=== PATIENT | female | born 1960 | race Caucasian/White ===

== ENCOUNTER 2017-06-10 09:26 | Emergency (ER) | payer OTHER ==
--- NOTE | 2017-06-10 10:46 | ED Physician Documentation ---
PD HPI BACK PAIN - Stated complaint Stated Complaint: BACK PX - Chief complaint Chief Complaint: Back Pain - History obtained from History obtained from: Patient - History of Present Illness Timing - onset: How many days ago (2-3) Timing - duration: Days Timing - details: Abrupt onset, Still present (started hurting left posterior chest/back about 2-3 days ago. Hurts for palpation and movement. Not hurting to breath and no dyspnea.) Location: Mid, Left (about brastrap level left rear back. No noted injury.) Quality: Pain, Sharp Associated symptoms: No: Fever, Weakness, Numbness Improves with: Rest Worsened by: Movement, Palpation Similar symptoms before: Has not had sx before Recently seen: Not recently seen Review of Systems Constitutional: denies: Fever, Chills Cardiac: denies: Palpitations, Pedal edema Respiratory: denies: Dyspnea, Cough PD PAST MEDICAL HISTORY - Past Medical History Endocrine/Autoimmune: HyPOthyroidism DIRECTOR OF LOGISTICS: Endometriosis - Past Surgical History Past Surgical History: Yes General: Cholecystectomy /DIRECTOR OF LOGISTICS: section, Hysterectomy HEENT: Tonsil/Adenoidectomy - Present Medications Home Medications: Ambulatory Orders Medication Instructions Recorded Confirmed Fexofenadine HCl [Tiffany Allergy] 10/31/15 Levothyroxine Sodium 10/31/15 Metheltestosterone 10/31/15 Norgestimate-Ethinyl Estradiol 10/31/15 [Tri-Estarylla Tablet] Psuedafed 10/31/15 Amoxicillin 500 mg PO BID #14 capsule 07/03/16 Amoxicillin/Potassium Clav 1 each PO BID #14 tablet 07/03/16 [Augmentin 875-125 Tablet] Benzonatate [Tessalon] 100 mg PO TID PRN #25 capsule 07/03/16 Ciprofloxacin HCl [Cipro] 07/03/16 Hyoscyamine Sulfate [Levsin-Sl] 0.125 mg SL TID #14 tab.subl 07/03/16 Ondansetron Odt [Zofran] 4 mg TL Q6H PRN #10 tablet 07/03/16 predniSONE [Deltasone] 40 mg PO DAILY 5 Days tablet 07/03/16 Methocarbamol [Robaxin] 500 mg PO Q6H PRN #25 tablet 06/10/17 Tramadol HCl 50 mg PO Q6H PRN #20 tablet 06/10/17 - Allergies Allergies/Adverse Reactions: Allergies Allergy/AdvReac Type Severity Reaction Status Date / Time azithromycin [From Zithromax] Allergy Unknown Verified 06/10/17 09:35 codeine Allergy Unknown Verified 06/10/17 09:35 erythromycin base Allergy Unknown Verified 06/10/17 09:35 hydrocodone bitartrate * Allergy Unknown Verified 06/10/17 09:35 [From Vicodin] lavender (Lavandula Allergy Unknown Verified 06/10/17 09:35 angustifolia) [lavender] morphine Allergy Unknown Verified 06/10/17 09:35 nitrofurantoin Allergy Unknown Verified 06/10/17 09:35 [From Macrobid] nitrofurantoin Allergy Unknown Verified 06/10/17 09:35 macrocrystalline * [From Macrobid] oxycodone HCl * Allergy Unknown Verified 06/10/17 09:35 [From Percocet] vinager Allergy Unknown Uncoded 10/31/15 10:25 - Social History Does the pt smoke?: No Smoking Status: Never smoker Does the pt drink ETOH?: No Does the pt have substance abuse?: No - Immunizations Immunizations are current?: Yes - POLST Patient has POLST: No PD ED PE NORMAL - Vitals Vital signs reviewed: Yes - General General: Alert and oriented X 3, Well developed/nourished, Other (appears in pain with palpation and movement. No pain with deep breathing. ) - HEENT HEENT: Pharynx benign - Neck Neck: Supple, no meningeal sign, No adenopathy - Cardiac Cardiac: RRR, No murmur - Respiratory Respiratory: Clear bilaterally - Female Female : Deferred - Back Back: No CVA TTP, No spinal TTP - Derm Derm: Normal color, Warm and dry, No rash - Extremities Extremities: No tenderness to palpate, Normal ROM s pain, No edema, No calf tenderness / cord - Neuro Neuro: Alert and oriented X 3, No motor deficit, Normal speech Results - Vitals Vitals: Vital Signs - 24 hr 06/10/17 06/10/17 09:31 13:28 Temperature 36.8 C 36.8 C Heart Rate 70 75 Respiratory 16 16 Rate Blood Pressure 98/57 L 131/79 H O2 Saturation 99 98 Oxygen O2 Source Room air - Rads (name of study) chest Radiology: Prelim report reviewed, EMP read contemporaneously (no acute process. ) PD MEDICAL DECISION MAKING - ED course Complexity details: reviewed results, considered differential (seems musculoskeletal. Higher than kidney area. No rash but is tender to touch as well as palpation. ), d/w patient Departure - Departure Disposition: 01 Home, Self Care Clinical Impression: Acute thoracic back pain Qualifiers: Back pain laterality: left Qualified Code(s): M54.6 - Pain in thoracic spine Condition: Stable Record reviewed to determine appropriate education?: Yes Instructions: ED Acute Pain [facility] Follow-Up: Ronen Hanley MD [Primary Care Provider] - Prescriptions: Methocarbamol [Robaxin] 500 mg PO Q6H PRN #25 tablet PRN Reason: Spasms Tramadol HCl 50 mg PO Q6H PRN #20 tablet PRN Reason: Pain Comments: Presume musculoskeletal pain at this time. Use Tylenol for pain. Add tramadol every 6 hours if needed. Robaxin muscle relaxant can be used as well for spasms or stiffness. Recheck if not improved over the next several days or if other symptoms develop such as rash, fever, trouble breathing, etc. Discharge Date/Time: 06/10/17 13:29
[2017-06-10] MEDS ORDERED: METHOCARBAMOL 500 MG TABLET PO STA (11:35)
[2017-06-10] MEDS ORDERED: ACETAMINOPHEN 325 MG TABLET PO STA (11:35)
[2017-06-10] MEDS ORDERED: traMADol 50 MG TABLET PO STA (11:35)
[2017-06-10] MEDS ORDERED: traMADol 50 MG TABLET PO ONE (12:01)
[2017-06-10] MEDS ORDERED: ACETAMINOPHEN 325 MG TABLET PO ONE (12:01)
[2017-06-10] MEDS ORDERED: METHOCARBAMOL 500 MG TABLET PO ONE (12:02)
--- NOTE | 2017-06-10 12:35 | XRAY Preliminary Report ---
Exam: XR CHEST 2 VIEW PA/LAT IMPRESSION: Minimal atelectatic changes at the left base, otherwise unremarkable exam. [facility] SITE ID: [id number]
--- NOTE | 2017-06-10 12:38 | XRAY Report ---
EXAM: CHEST RADIOGRAPHY EXAM DATE: 06/10/2017 12:11 PM. CLINICAL HISTORY: Left posterior rib/chest pain . COMPARISON: 01/11/2012. TECHNIQUE: 2 views. FINDINGS: Lungs/Pleura: Minimal atelectatic changes seen at the left base. Mediastinum: Heart and mediastinal contours are unremarkable. Other: None. IMPRESSION: Minimal atelectatic changes at the left base, otherwise unremarkable exam. [facility] Referring Provider Line: [phone] SITE ID: [id number]
[2017-06-10 13:28] VITALS: BP 131/79
== END 2017-06-10 13:29 | disposition home or self-care (01) ==
LOC: ED 09:26
DX: M54.6 Pain in thoracic spine (principal); E03.9 Hypothyroidism, unspecified
CPT/HCPCS: 71020; 99283; A9270

== ENCOUNTER 2017-06-28 14:54 | Outpatient (CLI) | payer OTHER ==
--- NOTE | 2017-06-28 18:45 | XRAY Report ---
TWO VIEW CHEST: 06/28/2017 CLINICAL INDICATION: Atelectasis. COMPARISON: 06/10/2017 Frontal and lateral views of the chest demonstrate a normal cardiac silhouette. Previously seen left basilar atelectasis has resolved. No focal infiltrate, effusion, or pneumothorax is present. IMPRESSION: NORMAL CHEST. JOB #: [id number] EXT JOB #:[id number]
== END 2017-06-28 14:55 | disposition home or self-care (01) ==
LOC: DI 14:54
PROVIDERS: ATTEND Family Medicine
DX: J98.11 Atelectasis (principal)
CPT/HCPCS: 71020

== ENCOUNTER 2019-05-30 11:58 | Outpatient (CLI) | payer OTHER ==
--- NOTE | 2019-05-30 15:39 | XRAY Report ---
Reason: PAINFUL 2ND JOINT L FOOT Procedure Date: 05/30/2019 Accession Number: [id number] / [id number] Procedure: XR - Foot 3 View LT CPT Code: Final Report FULL RESULT: EXAM: LEFT FOOT RADIOGRAPHY EXAM DATE: 05/30/2019 12:09 PM. CLINICAL HISTORY: PAINFUL 2ND JOINT L FOOT. COMPARISON: FOOT 3 VIEW LT 10/31/2015 10:35 AM. TECHNIQUE: 3 views. FINDINGS: Bones: Normal. No fractures or bone lesions. Joints: Normal. No subluxations. Soft Tissues: Normal. No soft tissue swelling. IMPRESSION: Negative foot radiography. [facility]
== END 2019-05-30 11:59 | disposition home or self-care (01) ==
LOC: DI 11:58
PROVIDERS: ATTEND Podiatrist
DX: M25.572 Pain in left ankle and joints of left foot (principal)

== ENCOUNTER 2019-06-07 12:51 | Emergency (ER) | payer OTHER ==
[2019-06-07] MEDS ORDERED: ONDANSETRON ODT 4 MG TABLET TL STA (13:14)
--- NOTE | 2019-06-07 15:00 | ED Physician Documentation ---
History of Present Illness - Stated complaint Stated Complaint: DIZZY/NAUSEA - Chief complaint Chief Complaint: General - History obtained from History obtained from: Patient - History of Present Illness Timing: Prior to arrival - Additonal information Additional information: This a 58-year-old woman who was outside helping someone who was doing some work on the deck she bent down and when she stood up she is felt like the room was spinning everywhere. She got nauseous so she went in the bathroom just put her head down on her knees she did have some dry heaving. She is continued to just feel woozy since that time and anytime she moves she will get that spinning sensation. When she arrived here in the emergency department they gave her Zofran by my orders out in the waiting room and she has improved she is not dry heaving anymore but she still feels a little bit woozy. She is been chilled and she is having stomach pain but it turns out that is a chronic issue that they think is related to a hernia. She is never had any episode of this before. She denies any headache although she then rubs the back of her neck and says that she is having a little bit of discomfort there. She does not have any ringing in her ears. She has not experienced any numbness or tingling. She is had no stuffy nose or sore throat. No fever. 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 - Past Surgical History Past Surgical History: Yes General: Cholecystectomy /WINDOWS 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: section, Hysterectomy HEENT: Tonsil/Adenoidectomy - Present Medications Home Medications: Ambulatory Orders Medication Instructions Recorded Confirmed Acetaminophen 500 mg PO 06/07/19 Cholecalciferol (Vitamin D3) 2,000 unit PO 06/07/19 [Vitamin D3] Esomeprazole Magnesium [Nexium] 20 mg PO 06/07/19 Fexofenadine HCl [Tiffany Allergy] 60 mg PO 06/07/19 Levothyroxine Sodium [Synthroid] 100 mcg PO 06/07/19 Meclizine [Antivert] 25 mg PO Q6H PRN #20 tablet 06/07/19 Ondansetron Odt [Zofran] 4 mg TL Q6H PRN #10 tablet 06/07/19 Provitalize 06/07/19 Simethicone [Gas Relief] 80 mg PO 06/07/19 - Allergies Allergies/Adverse Reactions: Allergies Allergy/AdvReac Type Severity Reaction Status Date / Time azithromycin [From Zithromax] Allergy Unknown Verified 06/07/19 14:46 codeine Allergy Unknown Verified 06/07/19 14:46 erythromycin base Allergy Unknown Verified 06/07/19 14:46 hydrocodone bitartrate * Allergy Unknown Verified 06/07/19 14:46 [From Vicodin] lavender (Lavandula Allergy Unknown Verified 06/07/19 14:46 angustifolia) [lavender] morphine Allergy Unknown Verified 06/07/19 14:46 nitrofurantoin Allergy Unknown Verified 06/07/19 14:46 [From Macrobid] nitrofurantoin Allergy Unknown Verified 06/07/19 14:46 macrocrystalline * [From Macrobid] oxycodone HCl * Allergy Unknown Verified 06/07/19 14:46 [From Percocet] vinager Allergy Unknown Uncoded 06/07/19 14:46 - Social History Does the pt smoke?: No Smoking Status: Never smoker Does the pt drink ETOH?: No Does the pt have substance abuse?: No - Immunizations Immunizations are current?: Yes - POLST Patient has POLST: No PD ED PE NORMAL - Vitals Vital signs reviewed: Yes - General General: Alert and oriented X 3, No acute distress, Well developed/nourished - HEENT HEENT: Atraumatic, PERRL, EOMI, Ears normal, Moist mucous membranes, Pharynx benign - Neck Neck: Supple, no meningeal sign, No adenopathy, Thyroid normal, No JVD, No bruit - Cardiac Cardiac: RRR, No murmur, No rub, Strong equal pulses - Respiratory Respiratory: No respiratory distress, Clear bilaterally - Abdomen Abdomen: Normal bowel sounds, Soft, Non tender, Non distended - Derm Derm: Normal color, Warm and dry, No rash - Extremities Extremities: No deformity, No edema - Neuro Neuro: Alert and oriented X 3, tire technician 2-12 intact, No motor deficit, No sensory deficit, Normal speech, Other (Patient was moving her head all about without any neck stiffness. She was up and ambulated and the only time she got a little bit off balance was when she turned quickly to go in the other direction. She was able to walk heel-to-toe and had a negative Romberg.) - Psych Psych: Normal mood, Normal affect Results - Vitals Vitals: Vital Signs - 24 hr 06/07/19 12:57 Temperature 36.6 C Heart Rate 64 Respiratory 16 Rate Blood Pressure 117/68 O2 Saturation 98 Oxygen O2 Source Room air PD MEDICAL DECISION MAKING - ED course Complexity details: d/w patient ED course: Patient felt better after the Zofran and was no longer vomiting. She has no neurological deficits at this time other than feeling the vertigo. I did not feel that imaging was warranted or necessary. She is given prescriptions for Antivert and Zofran. She should be cautious about rapid movements. She should not be driving or climbing to heights while she is still feeling dizzy as it could cause her to fall and injure herself. Departure - Departure Disposition: 01 Home, Self Care Clinical Impression: Vertigo Condition: Good Instructions: Meclizine, ED Vertigo Unspecified Follow-Up: Prosper Dimas MD [Primary Care Provider] - Prescriptions: Meclizine [Antivert] 25 mg PO Q6H PRN #20 tablet PRN Reason: Dizziness Ondansetron Odt [Zofran] 4 mg TL Q6H PRN #10 tablet PRN Reason: Nausea / Vomiting Comments: Be careful standing up quickly or any rapid movements. Do not climb up on any ladders or drive until the dizziness has resolved. You may use the Antivert up to 3 times a day if needed for dizziness. Give a prescription for Zofran to use if needed for nausea or vomiting. Follow-up with your primary care provider if the dizziness continues. If it becomes abruptly more severe or you are vomiting and cannot keep anything down, develop a headache or other problems arise you should be reevaluated.
[2019-06-07 16:00] VITALS: BP 135/84
== END 2019-06-07 16:05 | disposition home or self-care (01) ==
LOC: ED 12:51
DX: R42 Dizziness and giddiness (principal); R11.2 Nausea with vomiting, unspecified
CPT/HCPCS: 99282; 99283; Q0162

== ENCOUNTER 2022-05-02 08:00 | Outpatient (CLI) | payer OTHER ==
--- NOTE | 2022-05-02 13:48 | XRAY Report ---
PROCEDURE: Shoulder 3 View RT INDICATIONS: R SHOULDER PX TECHNIQUE: 3 views of the shoulder were acquired. COMPARISON: None. FINDINGS: Bones: No fractures or dislocations. No suspicious bony lesions. Visualized ribs appear intact. Soft tissues: No suspicious soft tissue calcifications. IMPRESSION: No acute finding. No significant degenerative changes. Reviewed by: Yovanny Gurrola MD on 05/02/2022 1:46 PM PDT Approved by: Yovanny Gurrola MD on 05/02/2022 1:46 PM PDT Station ID: [id number]
== END 2022-05-02 23:59 | disposition home or self-care (01) ==
LOC: DI.N 08:00
PROVIDERS: ATTEND Family Medicine
DX: M25.511 Pain in right shoulder (principal)

== ENCOUNTER 2023-04-21 17:11 | Emergency (ER) | payer OTHER ==
--- NOTE | 2023-04-21 18:54 | XRAY Report ---
PROCEDURE: Chest 1 View X-Ray INDICATIONS: SOA TECHNIQUE: One view of the chest was acquired. COMPARISON: None. FINDINGS: Surgical changes and devices: None. Lungs and pleura: No pleural effusions or pneumothorax. Lungs are clear. Mediastinum: Mediastinal contours appear normal. Heart size is normal. Bones and chest wall: No suspicious bony lesions. Overlying soft tissues appear unremarkable. IMPRESSION: No acute cardiopulmonary process. Reviewed by: Ede Wells on 04/21/2023 6:53 PM PDT Approved by: Ede Wells on 04/21/2023 6:53 PM PDT Station ID: [id number]
[2023-04-21] MEDS ORDERED: predniSONE 20 MG TABLET PO STA (18:57)
--- NOTE | 2023-04-21 19:00 | ED Physician Documentation ---
PD LOWE HEENT - Stated complaint Stated Complaint: SOA/WHEEZING - Chief complaint Chief Complaint: Heent - History obtained from History obtained from: Patient - Additional information Additional information: The patient comes to the emergency department chief complaint of wheezing, runny nose, and cough with yellow sputum production since being exposed to a cloud of dust a few days ago. She states that she has restrictive airway disease at baseline and is very prone to bronchitis. She is concerned that she may have bronchitis currently. She denies any fevers or chills. She denies shortness of breath. No other complaints at this time. No sick contacts that she knows of. 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 CHAIN BUSINESS ANALYST: section, Hysterectomy HEENT: Tonsil/Adenoidectomy - Present Medications Home Medications: Ambulatory Orders Medication Instructions Recorded Confirmed Acetaminophen 500 mg PO 06/07/19 Cholecalciferol (Vitamin D3) 2,000 unit PO 06/07/19 [Vitamin D3] Esomeprazole Magnesium [Nexium] 20 mg PO 06/07/19 Fexofenadine HCl [Tiffany Allergy] 60 mg PO 06/07/19 Levothyroxine Sodium [Synthroid] 100 mcg PO 06/07/19 Meclizine [Antivert] 25 mg PO Q6H PRN #20 tablet 06/07/19 Ondansetron Odt [Zofran] 4 mg TL Q6H PRN #10 tablet 06/07/19 Provitalize 06/07/19 Simethicone [Gas Relief] 80 mg PO 06/07/19 Doxycycline [Vibramycin] 100 mg PO BID #14 tablet 04/21/23 predniSONE [Deltasone] 60 mg PO DAILY 5 Days #15 tablet 04/21/23 - Allergies Allergies/Adverse Reactions: Allergies Allergy/AdvReac Type Severity Reaction Status Date / Time azithromycin [From Zithromax] Allergy Unknown Verified 04/21/23 17:29 codeine Allergy Unknown Verified 04/21/23 17:29 erythromycin base Allergy Unknown Verified 04/21/23 17:29 hydrocodone bitartrate * Allergy Unknown Verified 04/21/23 17:29 [From Vicodin] lavender (Lavandula Allergy Unknown Verified 04/21/23 17:29 angustifolia) [lavender] morphine Allergy Unknown Verified 04/21/23 17:29 nitrofurantoin Allergy Unknown Verified 04/21/23 17:29 [From Macrobid] nitrofurantoin Allergy Unknown Verified 04/21/23 17:29 macrocrystalline * [From Macrobid] oxycodone HCl * Allergy Unknown Verified 04/21/23 17:29 [From Percocet] vinager Allergy Unknown Uncoded 04/21/23 17:29 - Social History Does the pt smoke?: No Smoking Status: Never smoker Does the pt drink ETOH?: No Does the pt have substance abuse?: No - Immunizations Immunizations are current?: Yes - POLST Patient has POLST: No PD ED PE NORMAL - Vitals Vital signs reviewed: Yes - General General: Alert and oriented X 3, No acute distress, Well developed/nourished - HEENT HEENT: Atraumatic, PERRL, EOMI, Moist mucous membranes - Neck Neck: Supple, no meningeal sign - Cardiac Cardiac: RRR, No murmur - Respiratory Respiratory: No respiratory distress, Clear bilaterally - Derm Derm: Normal color, Warm and dry, No rash - Extremities Extremities: No deformity - Neuro Neuro: Alert and oriented X 3 - Psych Psych: Normal mood, Normal affect Results - Vitals Vitals: Vital Signs - 24 hr 04/21/23 17:25 Temperature 37.2 C Heart Rate 73 Respiratory 20 Rate Blood Pressure 138/67 H O2 Saturation 98 Oxygen O2 Source Room air - Rads (name of study) Chest x-ray Relevant Findings:: Final report received, See rad report (Negative) PD Medical Decision Making - ED course Complexity details: reviewed results, re-evaluated patient, considered differential, d/w patient ED course: The patient was given a dose of prednisone here. Her chest x-ray was negative. We have discussed symptomatic management at home and the usual indications for return. Departure - Departure Disposition: 01 Home, Self Care Condition: Stable Instructions: ED Wheezing Prescriptions: predniSONE [Deltasone] 60 mg PO DAILY 5 Days #15 tablet Doxycycline [Vibramycin] 100 mg PO BID #14 tablet Comments: Your chest x-ray looks great. At this point in time, it is very early in the course of your symptoms and most likely, symptoms are secondary to irritation from the dust you inhaled. You may continue to use your inhaler and some of the other home remedies that we have discussed to help with your sense of chest congestion. A prescription for prednisone has been electronically transmitted to the [facility] pharmacy in [place]. You should use this over the weekend. If you feel like things are getting worse, you may start the antibiotic prescription that has been sent for you, as well. If you feel as though you are getting very short of breath, please return to the emergency department for reevaluation.
[2023-04-21 19:23] VITALS: BP 124/52; O2SAT 99
--- NOTE | 2023-04-22 15:05 | ED Physician Documentation ---
ED Addendum - Addendum Addendum: 04/22/23 15:04 Patient called in requesting albuterol neb solution in addition to the other symptomatic management that Dr. Leo had prescribed and this was sent to [facility].
== END 2023-04-21 19:18 | disposition home or self-care (01) ==
LOC: ED 17:11
DX: J45.909 Unspecified asthma, uncomplicated (principal); E03.9 Hypothyroidism, unspecified; Z79.899 Other long term (current) drug therapy
CPT/HCPCS: 71045; 99283; J7512